=== PATIENT | male | born 1960 | race Caucasian/White ===

== ENCOUNTER 2022-09-05 07:54 | Emergency (ER) | payer OTHER ==
[~2022-09-05] VITALS: Ht 170.2 cm; Wt 68.0 kg
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
[2022-09-05 08:09] LABS: BASOPHILS # (AUTO) 0.1 10^3/uL (0.0-0.1); BASOPHILS % (AUTO) 1 % (0-10); EOSINOPHILS # (AUTO) 0.2 10^3/uL (0.0-0.3); EOSINOPHILS % (AUTO) 2 % (0-10); HEMATOCRIT 47 % (40-54); HEMOGLOBIN 14.7 g/dL (13.3-17.7); LYMPHOCYTES % (AUTO) 47 % (12-44); MEAN CORPUSCULAR HEMOGLOBIN 29 pg (25-34); MEAN CORPUSCULAR HGB CONC 31 g/dL (32-36); MEAN CORPUSCULAR VOLUME 93 fL (80-99); MEAN PLATELET VOLUME 11.4 fL (9.0-12.2); MONOCYTES # (AUTO) 0.7 10^3/uL (0.0-1.0); MONOCYTES % (AUTO) 9 % (0-12); NEUTROPHILS # (AUTO) 3.5 10^3/uL (1.8-7.8); NEUTROPHILS % (AUTO) 40 % (42-75); PLATELET COUNT 225 10^3/uL (130-400); WHITE BLOOD COUNT 8.6 10^3/uL (4.3-11.0)
[2022-09-05] MEDS: NS IV 1000 ML 1,000 ML IV STA ×2 (08:12→09:22)
--- NOTE | 2022-09-05 08:37 | Diagnostic Imaging Report ---
PROCEDURE: CT head without contrast. TECHNIQUE: Multiple contiguous axial images were obtained through the brain without the use of intravenous contrast. Auto Exposure Controls were utilized during the CT exam to meet ALARA standards for radiation dose reduction. INDICATION: Seizure. COMPARISON: None. FINDINGS: Patient motion artifact degrades image quality. The ventricles and cortical sulci are normal. The angel-white matter differentiation is preserved. No intracranial mass or fluid collection. No acute intracranial hemorrhage. No midline shift or mass effect. The subarachnoid spaces are maintained. Scattered calcifications of the intracranial vasculature. No Chiari malformation. The sella is normal. The skull is normal. The paranasal sinuses and mastoids are clear. IMPRESSION: No acute intracranial hemorrhage. No large vascular territory manuel-white loss. No intracranial mass, midline shift, or hydrocephalus. Dictated by: Dictated on workstation # [id number]
[2022-09-05 08:39] LABS: ALANINE AMINOTRANSFERASE 226 U/L (0-55); ALKALINE PHOSPHATASE 80 U/L (40-136); BILIRUBIN,TOTAL 0.6 MG/DL (0.1-1.0); BUN/CREATININE RATIO 13; CARBON DIOXIDE 18 MMOL/L (21-32); CHLORIDE 106 MMOL/L (98-107); CREATININE SERUM 0.97 MG/DL (0.60-1.30); GFR ESTIMATED 90; GLUCOSE 89 MG/DL (70-105); POTASSIUM 3.9 MMOL/L (3.6-5.0); SODIUM 143 MMOL/L (135-145)
--- NOTE | 2022-09-05 08:39 | Diagnostic Imaging Report ---
CHEST 1 VIEW AP/PA ONLY INDICATION: confusion, new seizure activity. COMPARISON: None. FINDINGS: Lungs: Low lung volume. No focal consolidation. Normal pulmonary vasculature. Pleura: No pleural effusion or pneumothorax. Heart and Mediastinum: Cardiomediastinal silhouette and great vessels of the thorax are normal. Osseous Structures and Soft Tissues: No acute osseous abnormality. Normal soft tissues. Indeterminate lucency below the left hemidiaphragm may represent overlapping gas within the bowel or may represent pneumoperitoneum. IMPRESSION: No acute cardiopulmonary process. Indeterminate lucency below the left hemidiaphragm may represent overlapping gas within the bowel or may represent pneumoperitoneum. Dictated by: Dictated on workstation # [id number]
[2022-09-05 08:40] LABS: ACETAMINOPHEN < 10 UG/ML (10-30); ALBUMIN 3.7 GM/DL (3.2-4.5); SALICYLATE < 0.3 MG/DL (5.0-20.0); TOTAL PROTEIN 5.7 GM/DL (6.4-8.2)
[2022-09-05] MEDS ORDERED: ORPHENADRINE 60 MG/2 ML (NORFLEX) AMP (ED ONLY) IVP STA (09:14)
[2022-09-05] MEDS ORDERED: KETOROLAC 15 MG/ML VIAL IVP STA (09:14)
--- NOTE | 2022-09-05 09:37 | Diagnostic Imaging Report ---
PROCEDURE: CT abdomen and pelvis without contrast. TECHNIQUE: Multiple contiguous axial images were obtained through the abdomen and pelvis without the use of intravenous contrast. Auto Exposure Controls were utilized during the CT exam to meet ALARA standards for radiation dose reduction. INDICATION: Seizure, diabetes, hypoglycemia with lethargy and abnormal chest x-ray revealing possibility of pneumoperitoneum. There is mild subjacent atelectasis and/or scarring in the dependent lung bases. There is a healed left 7th rib fracture. Note is made of endplate irregularity and mild compression deformity of lower thoracic vertebrae in the L1 vertebral body. This may represent compression fractures of nonacute nature however clinical correlation to pain in these regions would be useful. Below the diaphragm, unenhanced images of liver and spleen reveal no focal abnormality. Moderate amount of material seen within the stomach and there is moderate colonic stool present. Gallbladder surgically absent. No definite pancreatic, adrenal gland or renal lesion is seen on the unenhanced images although there is punctate nonobstructing stone in the midportion of left kidney. There is no evidence of urinary tract obstruction. There is mild aortoiliac atherosclerotic calcification. Unopacified bladder is unremarkable. There is fecal distention of the rectum. IMPRESSION: No pneumoperitoneum or peritoneal free fluid. No definite acute abnormality is seen. Dictated by: Dictated on workstation # [id number]
[2022-09-05] MEDS ORDERED: ACETAMINOPHEN 500 MG TAB (TYLENOL) PO STA (11:01)
[2022-09-05] MEDS ORDERED: LEVE500T6 PO (11:08)
[2022-09-05 11:10] VITALS: BP 120/71
== END 2022-09-05 11:13 | disposition home or self-care (01) ==
LOC: EDBD 07:57 → ER FS 07:57
DX: R56.9 Unspecified convulsions (principal); F17.210 Nicotine dependence, cigarettes, uncomplicated; W17.89XA Other fall from one level to another, initial encounter; W22.8XXA Striking against or struck by other objects, initial encounter
CPT/HCPCS: 36415; 70450; 71045; 74176; 80053; 82947; 83605; 83735; 85025; 93005; 93041; 99284; G0480 ×3; 80320; 80329